=== PATIENT | female | born 1975 | race Caucasian/White ===

== ENCOUNTER 2023-03-12 06:50 | Day surgery (SDC) | payer OTHER ==
[~2023-03-12 06:50] MED LIST: CIPR500 PO; VALACYCLOVIR500 MG PO
--- NOTE | 2023-03-12 07:43 | NUR ---
03/12/23 0743 Lynette Peres CALL LIGHT WITHIN REACH. NO CONCERNS OR FURTHER QUESTIONS AT THIS TIME.
--- NOTE | 2023-03-12 08:34 | NUR ---
03/12/23 0834 Barber Chris CHALINO AREA PREPPED BY KNM WITH BETADINE SOLUTION. ABDOMINAL AREA PREPPED BY CMT WITH DURAPREP. ROPIVACAINE 0.5% 20 MLS MIXED & VERIFIED W/ EPI 0.10 ML (1MG/ML) PER ORDER TO MAKE ROPIVACAINE 0.5% 1:200,000 FOR INJECTION AT OPSITE BY DR GARRISON. MULTI DOSE VIAL.
[2023-03-12 10:00] VITALS: BP 133/89
--- NOTE | 2023-03-12 11:01 | NUR ---
03/12/23 1101 Guerrero Louis PT REPORTED 5/10 PAIN UPON DISCHARGE. SHE DESCRIBED PAIN TOLERABLE AND REFUSED ORAL PAIN MEDICATION. PT INTIALLY EXPERIENCED NAUSEA IN STEP DOWN BUT SAID NAUSEA HAD RESOLVED AT TIME OF DISCHARGE. PT INSTRUCTED TO REMOVE SOPE PATCH WITHIN 72 HOURS AND WASH HANDS.
== END 2023-03-12 10:56 | disposition home or self-care (01) ==
LOC: ORSCSDS 06:50
PROVIDERS: Obstetrics & Gynecology
PROC: 0U5B8ZZ Destruction of Endometrium, Via Natural or Artificial Opening Endoscopic (ICD-10-PCS; principal; 2023-03-12 08:00)
PROC: 0UT74ZZ Resection of Bilateral Fallopian Tubes, Percutaneous Endoscopic Approach (ICD-10-PCS; principal; 2023-03-12 08:00)
PROC: 0U5F4ZZ Destruction of Cul-de-sac, Percutaneous Endoscopic Approach (ICD-10-PCS; principal; 2023-03-12 08:00)
DX: N92.0 Excessive and frequent menstruation with regular cycle (principal); N94.6 Dysmenorrhea, unspecified; Z30.2 Encounter for sterilization; Q50.5 Embryonic cyst of broad ligament; N80.359 Endometriosis of pelvic sidewall, unspecified side, unspecified depth
CPT/HCPCS: 88302; 88305; A9270; J0171; J0690; J1100; J1885; J2250; J2370; J2405; J2704; J2795; J3010; J7120